=== PATIENT | female | born 1940 | race African-American/Black ===

== ENCOUNTER 2019-11-13 08:30 | Inpatient (IN) | payer MEDICARE ==
[~2019-11-13] VITALS: Ht 157.5 cm; Wt 88.9 kg
[~2019-11-13 08:30] MED LIST: ATOR20TA65 MT; CHLO25TA2 PO; FLEC100T2 MT; FURO20TA4 PO; GABA300S PO; HYDR100T26 MT; LEVO25TA7 MT; LISI40TA4 MT; METF-414 PO; METO-539 MT; MONT10TA26 MT; PANT40TA4 PO; PRIM50TA31 MT; RIVA20TA MT; SERT-112 MT
[2019-11-13 09:35] LABS: BASOPHILS % 1.1 % (0.0-2.0); EOSINOPHILS % 2.5 % (0.0-5.0); HEMATOCRIT. 34.9 % (36.0-48.0); HEMOGLOBIN. 11.7 g/dL (12.0-16.0); LYMPHOCYTES % 18.5 % (20.0-50.0); MEAN CORPUSCULAR HEMOGLOBIN 30.4 pg (28.0-32.0); MEAN CORPUSCULAR VOLUME 90.3 fL (81.0-99.0); MEAN PLATELET VOLUME 8.5 fl (7.4-10.4); MONOCYTES % 7.5 % (2.0-8.0); NEUTROPHILS % 70.4 % (40.0-76.0); PLATELET 302 x1000/uL (130-400); RED BLOOD CELL COUNT 3.86 mill/uL (4.2-5.4); RED CELL DISTRIBUTION WIDTH 17.2 % (11.6-14.6)
[2019-11-13 09:39] LABS: CHLORIDE 104 mEq/L (98-107)
[2019-11-13] MEDS ORDERED: ACETAMINOPHEN 325MG TABLET PO STA (11:41)
[2019-11-13] MEDS ORDERED: MAGNESIUM/ALUMINUM HYDROXIDE/SIMETHICONE 30ML UDC PO PRN (16:45)
[2019-11-13] MEDS ORDERED: GUAIFENESIN 200MG/10ML SUGAR FREE UDC PO PRN (16:45)
[2019-11-13] MEDS ORDERED: ACETAMINOPHEN 650MG SUPP PR PRN (16:45)
[2019-11-13] MEDS ORDERED: ONDANSETRON HCL 4MG/2ML INJ IV PRN (16:45)
[2019-11-13] MEDS ORDERED: DOCUSATE SODIUM 100MG CAPSULE PO PRN (16:45)
[2019-11-13] MEDS ORDERED: HYDROCODONE/ACETAMINOPHEN 5/325MG TABLET PO PRN (16:45)
[2019-11-13 17:44] LABS: BG BASE EXCESS -0.2 mmol/L (-2.0-2.0); BG CARBOXYHEMOGLOBIN 0.3 % (0.5-1.5); BG DEOXYHEMOGLOBIN 6.1 % (0.0-5.0); BG FRACTION INSPIRED OXYGEN 21; BG HCO3 ACT 23.4 mmol/L (22.0-26.0); BG METHEMOGLOBIN 0.6 % (0.0-1.5); BG OXYGEN SATURATION 93.8 % (92.0-98.5); BG PCO2 34.8 mmHg (35.0-45.0); BG PH 7.445 (7.350-7.450); BG PO2 68.7 mmHg (75.0-100.0); BG SAMPLE SITE RIGHT RADIAL; BG TOTAL HEMOGLOBIN 12.3 g/dL (12.0-18.0); BG VENT MODE ROOM AIR
[2019-11-13] MEDS ORDERED: FUROSEMIDE 20MG TABLET PO SCH (18:00)
[2019-11-13] MEDS ORDERED: GABAPENTIN SOLN 50MG/1ML UDC PO NR (18:01)
[2019-11-13] MEDS ORDERED: PANTOPRAZOLE 40MG DR TABLET PO NR (18:01)
[2019-11-13] MEDS ORDERED: PRIMIDONE 50MG TABLET PO NR (18:02)
[2019-11-13] MEDS ORDERED: ENOXAPARIN 60MG/0.6ML SYR SUBCUT SCH (18:15)
[2019-11-13] MEDS ORDERED: GABAPENTIN 300MG CAPSULE PO NR (18:15)
[2019-11-13 19:20] LABS: INR 1.1; PROTHROMBIN TIME 12.2 sec (9.6-11.0)
[2019-11-13 19:57] LABS: CREATINE KINASE MB FRACTION 3.7 ng/mL (0.5-3.6)
[2019-11-13 21:45] VITALS: BP 142/78
[2019-11-13] MEDS: ASPIRIN 81MG TABLET PO SCH (22:38)
[2019-11-13] MEDS: ATORVASTATIN CALCIUM 20MG TABLET PO SCH (22:38)
[2019-11-13] MEDS: HYDRALAZINE HCL 100MG TABLET PO SCH (22:39)
[2019-11-13] MEDS ORDERED: DEXTROSE 50% WATER 50ML SYRINGE IV PRN (22:45)
[2019-11-14] VITALS: BP 123/71
[2019-11-14 04:00] VITALS: BP_SYST 105; BP_DIAS 25; BP_DIAS 52
[2019-11-14] MEDS: HYDRALAZINE HCL 100MG TABLET PO SCH ×3 (06:00→21:10)
[2019-11-14 06:41] LABS: CHLORIDE 107 mEq/L (98-107); EOSINOPHILS % 2.4 % (0.0-5.0); HEMATOCRIT. 38.1 % (36.0-48.0); HEMOGLOBIN. 12.8 g/dL (12.0-16.0); LYMPHOCYTES % 25.4 % (20.0-50.0); MEAN CORPUSCULAR HEMOGLOBIN 30.6 pg (28.0-32.0); MEAN CORPUSCULAR VOLUME 90.9 fL (81.0-99.0); MEAN PLATELET VOLUME 9.4 fl (7.4-10.4); MONOCYTES % 9.3 % (2.0-8.0); NEUTROPHILS % 61.9 % (40.0-76.0); PLATELET 236 x1000/uL (130-400); RED BLOOD CELL COUNT 4.19 mill/uL (4.2-5.4); RED CELL DISTRIBUTION WIDTH 17.3 % (11.6-14.6)
[2019-11-14 07:00] LABS: LDL CHOLESTEROL 53 mg/dL (5-100)
[2019-11-14 07:01] LABS: HDL CHOLESTEROL 46 mg/dL (40-59)
[2019-11-14 07:02] LABS: TOTAL IRON BINDING CAPACITY 206 ug/dL (250-450)
[2019-11-14 07:05] LABS: VITAMIN B12 SERUM 452 pg/mL (211-911)
[2019-11-14] MEDS: FUROSEMIDE 20MG TABLET PO SCH ×2 (07:05→17:58)
[2019-11-14 07:39] LABS: CLARITY URINE CLEAR (CLEAR); COLOR URINE YELLOW (YELLOW); KETONES URINE NEGATIVE (NEGATIVE); LEUKOCYTE ESTERASE URINE NEGATIVE (NEGATIVE); NITRITE URINE NEGATIVE (NEGATIVE); OCCULT BLOOD URINE NEGATIVE (NEGATIVE); PROTEIN URINE NEGATIVE (NEGATIVE); UROBILINOGEN URINE 0.2 E.U./dL (0.2-1.0)
[2019-11-14] MEDS: INSULIN LISPRO 100 UNITS/ML SUBCUT SCH ×4 (07:40→21:00)
[2019-11-14] MEDS: BLOOD SUGAR DIAGNOSTIC STRIP TEST SCH ×4 (07:40→21:08)
[2019-11-14 08:00] VITALS: BP 131/93
[2019-11-14] MEDS: PANTOPRAZOLE 40MG DR TABLET PO SCH ×2 (08:08→18:01)
[2019-11-14] MEDS: LEVOTHYROXINE SODIUM 25MCG TABLET PO SCH (08:08)
[2019-11-14] MEDS ORDERED: RIVAROXABAN 20 MG TABLET PO SCH (09:00)
[2019-11-14] MEDS: GABAPENTIN 300MG CAPSULE PO SCH ×2 (09:29→17:58)
[2019-11-14] MEDS: PRIMIDONE 50MG TABLET PO SCH ×2 (09:30→17:58)
[2019-11-14] MEDS: ASPIRIN 81MG TABLET PO SCH ×2 (09:30→18:01)
[2019-11-14] MEDS: SERTRALINE HCL 100MG TABLET PO SCH (09:30)
[2019-11-14] MEDS: LISINOPRIL 40MG TABLET PO SCH (09:31)
[2019-11-14] MEDS: METOPROLOL TARTRATE 50MG TABLET PO SCH ×2 (09:31→21:10)
[2019-11-14 12:00] VITALS: BP 130/87
[2019-11-14] MEDS ORDERED: PNEUMOCOCCAL 23-VAL P-SAC VAC 0.5 ML IM ONE (12:00)
[2019-11-14] MEDS ORDERED: POTASSIUM CHLORIDE INJ 40 MEQ in DEXT 5% WATER 250 ML IV NR (13:00)
[2019-11-14 16:00] VITALS: BP 122/77
[2019-11-14] MEDS ORDERED: POTASSIUM CHLORIDE 20MEQ TABLET SR PO NR (17:45)
[2019-11-14 20:00] VITALS: BP 112/61
[2019-11-14] MEDS: ATORVASTATIN CALCIUM 20MG TABLET PO SCH (21:10)
[2019-11-15] VITALS: BP 115/65
[2019-11-15 04:00] VITALS: BP 111/62
[2019-11-15] MEDS: HYDRALAZINE HCL 100MG TABLET PO SCH ×3 (06:04→22:00)
[2019-11-15] MEDS: FUROSEMIDE 20MG TABLET PO SCH (06:50)
[2019-11-15 07:00] LABS: HEMOGLOBIN 11.6 g/dL (12.0-16.0); MEAN CORPUSCULAR HEMOGLOBIN 30.6 pg (28.0-32.0); MEAN CORPUSCULAR VOLUME 89.8 fL (81.0-99.0); PLATELET 297 x1000/uL (130-400); RED BLOOD CELL COUNT 3.79 mill/uL (4.2-5.4); RED CELL DISTRIBUTION WIDTH 17.9 % (11.6-14.6)
[2019-11-15] MEDS: INSULIN LISPRO 100 UNITS/ML SUBCUT SCH ×4 (08:10→21:00)
[2019-11-15] MEDS: BLOOD SUGAR DIAGNOSTIC STRIP TEST SCH ×4 (08:14→21:00)
[2019-11-15] MEDS: GABAPENTIN 300MG CAPSULE PO SCH ×2 (08:55→18:23)
[2019-11-15] MEDS: METOPROLOL TARTRATE 50MG TABLET PO SCH (08:56)
[2019-11-15] MEDS: LEVOTHYROXINE SODIUM 25MCG TABLET PO SCH (08:56)
[2019-11-15] MEDS: SERTRALINE HCL 100MG TABLET PO SCH (08:56)
[2019-11-15] MEDS: ASPIRIN 81MG TABLET PO SCH (08:57)
[2019-11-15] MEDS: LISINOPRIL 40MG TABLET PO SCH (08:57)
[2019-11-15] MEDS: PRIMIDONE 50MG TABLET PO SCH ×2 (08:57→18:23)
[2019-11-15] MEDS: PANTOPRAZOLE 40MG DR TABLET PO SCH (09:03)
[2019-11-15] MEDS ORDERED: ASPIRIN 81MG TABLET PO SCH (10:45)
[2019-11-15] MEDS ORDERED: FENTANYL CITRATE/PF 50MCG/ML 2ML VIAL ONE (11:56)
[2019-11-15] MEDS ORDERED: MIDAZOLAM HCL 2 MG/2 ML VIAL ONE (11:56)
[2019-11-15] MEDS ORDERED: IODIXANOL 320MG/ML 100 ML BOTTLE IV ONE (11:56)
[2019-11-15] MEDS ORDERED: HEPARIN 1,000 UNITS PREMIX 0 ML IV ONE (11:57)
[2019-11-15] MEDS ORDERED: LIDOCAINE HCL 1% 20ML VIAL (Pyxis) INJ ONE (11:57)
[2019-11-15] MEDS ORDERED: ASPIRIN/SOD BICARB/CITRIC ACID 324MG TAB EFF ONE (11:57)
[2019-11-15 12:00] VITALS: BP 89/59
[2019-11-15] MEDS ORDERED: MIDODRINE HCL 5MG TABLET PO NR (14:15)
[2019-11-15 16:00] VITALS: BP 101/67
[2019-11-15] MEDS: MIDODRINE HCL 5MG TABLET PO SCH (17:00)
[2019-11-15] MEDS: FAMOTIDINE 20MG TABLET PO SCH (18:23)
[2019-11-15 20:00] VITALS: BP 128/65
[2019-11-16] VITALS: BP 104/63
[2019-11-16] MEDS: ATORVASTATIN CALCIUM 20MG TABLET PO SCH ×2 (02:07→21:25)
[2019-11-16] MEDS: METOPROLOL TARTRATE 25MG TABLET PO SCH ×3 (02:09→21:25)
[2019-11-16 04:00] VITALS: BP 140/83
[2019-11-16] MEDS: LEVOTHYROXINE SODIUM 25MCG TABLET PO SCH (06:24)
[2019-11-16] MEDS: HYDRALAZINE HCL 100MG TABLET PO SCH ×3 (06:25→21:25)
[2019-11-16] MEDS: BLOOD SUGAR DIAGNOSTIC STRIP TEST SCH ×4 (06:25→21:15)
[2019-11-16 06:53] LABS: BASOPHILS % 1.1 % (0.0-2.0); EOSINOPHILS % 4.1 % (0.0-5.0); HEMATOCRIT. 36.6 % (36.0-48.0); HEMOGLOBIN. 12.5 g/dL (12.0-16.0); LYMPHOCYTES % 20.4 % (20.0-50.0); MEAN CORPUSCULAR HEMOGLOBIN 30.9 pg (28.0-32.0); MEAN CORPUSCULAR VOLUME 90.5 fL (81.0-99.0); MEAN PLATELET VOLUME 9.6 fl (7.4-10.4); MONOCYTES % 5.8 % (2.0-8.0); NEUTROPHILS % 68.6 % (40.0-76.0); PLATELET 258 x1000/uL (130-400); RED BLOOD CELL COUNT 4.05 mill/uL (4.2-5.4); RED CELL DISTRIBUTION WIDTH 17.9 % (11.6-14.6)
[2019-11-16] MEDS: INSULIN LISPRO 100 UNITS/ML SUBCUT SCH ×4 (07:43→21:18)
[2019-11-16] MEDS: MIDODRINE HCL 5MG TABLET PO SCH ×3 (09:00→17:00)
[2019-11-16] MEDS: SERTRALINE HCL 100MG TABLET PO SCH (09:30)
[2019-11-16] MEDS: GABAPENTIN 300MG CAPSULE PO SCH ×2 (09:30→17:34)
[2019-11-16] MEDS: PRIMIDONE 50MG TABLET PO SCH ×2 (09:31→17:34)
[2019-11-16] MEDS: ASPIRIN 81MG TABLET PO SCH ×2 (09:37→17:34)
[2019-11-16] MEDS: ACETAMINOPHEN 325MG TABLET PO PRN (11:01)
[2019-11-16 11:59] VITALS: BP 110/60
[2019-11-16] MEDS: FAMOTIDINE 20MG TABLET PO SCH (17:49)
[2019-11-16] MEDS: DIPHENHYDRAMINE 50MG/ML VIAL IV PRN (17:54)
[2019-11-16 20:00] VITALS: BP 108/53
[2019-11-17] VITALS: BP 128/67
[2019-11-17 04:00] VITALS: BP 145/76
[2019-11-17] MEDS: HYDRALAZINE HCL 100MG TABLET PO SCH ×3 (05:42→21:22)
[2019-11-17] MEDS: BLOOD SUGAR DIAGNOSTIC STRIP TEST SCH ×4 (06:14→21:00)
[2019-11-17 08:00] VITALS: BP 117/68
[2019-11-17] MEDS: INSULIN LISPRO 100 UNITS/ML SUBCUT SCH ×4 (08:10→21:00)
[2019-11-17] MEDS: MIDODRINE HCL 5MG TABLET PO SCH ×3 (08:45→17:44)
[2019-11-17] MEDS: LEVOTHYROXINE SODIUM 25MCG TABLET PO SCH (08:45)
[2019-11-17] MEDS: METOPROLOL TARTRATE 25MG TABLET PO SCH ×2 (08:45→21:22)
[2019-11-17] MEDS: PRIMIDONE 50MG TABLET PO SCH ×2 (08:45→17:44)
[2019-11-17] MEDS: ASPIRIN 81MG TABLET PO SCH ×2 (08:45→17:44)
[2019-11-17] MEDS: SERTRALINE HCL 100MG TABLET PO SCH (08:45)
[2019-11-17] MEDS: GABAPENTIN 300MG CAPSULE PO SCH ×2 (09:39→17:44)
[2019-11-17 12:00] VITALS: BP 109/65
[2019-11-17 15:08] LABS: CHLORIDE 105 mEq/L (98-107)
[2019-11-17 16:00] VITALS: BP 105/72
[2019-11-17] MEDS: FAMOTIDINE 20MG TABLET PO SCH (17:44)
[2019-11-17 20:00] VITALS: BP 125/86
[2019-11-17] MEDS: ATORVASTATIN CALCIUM 20MG TABLET PO SCH (21:22)
[2019-11-18] VITALS (7 sets, daily range): BP systolic 90–138; BP diastolic 52–82
[2019-11-18] MEDS: HYDRALAZINE HCL 100MG TABLET PO SCH ×3 (05:52→22:00)
[2019-11-18 06:25] LABS: BASOPHILS % 1.4 % (0.0-2.0); EOSINOPHILS % 5.5 % (0.0-5.0); HEMATOCRIT. 33.2 % (36.0-48.0); HEMOGLOBIN. 11.2 g/dL (12.0-16.0); LYMPHOCYTES % 24.8 % (20.0-50.0); MEAN CORPUSCULAR HEMOGLOBIN 30.6 pg (28.0-32.0); MEAN CORPUSCULAR VOLUME 90.8 fL (81.0-99.0); MEAN PLATELET VOLUME 8.9 fl (7.4-10.4); MONOCYTES % 8.2 % (2.0-8.0); NEUTROPHILS % 60.1 % (40.0-76.0); PLATELET 250 x1000/uL (130-400); RED BLOOD CELL COUNT 3.66 mill/uL (4.2-5.4); RED CELL DISTRIBUTION WIDTH 17.8 % (11.6-14.6)
[2019-11-18] MEDS: INSULIN LISPRO 100 UNITS/ML SUBCUT SCH ×4 (06:48→20:46)
[2019-11-18] MEDS: BLOOD SUGAR DIAGNOSTIC STRIP TEST SCH ×3 (06:48→20:46)
[2019-11-18 07:04] LABS: CHLORIDE 104 mEq/L (98-107)
[2019-11-18] MEDS: LEVOTHYROXINE SODIUM 25MCG TABLET PO SCH (07:40)
[2019-11-18] MEDS: METOPROLOL TARTRATE 25MG TABLET PO SCH ×2 (09:00→18:55)
[2019-11-18] MEDS: MIDODRINE HCL 5MG TABLET PO SCH ×2 (09:00→17:00)
[2019-11-18] MEDS: PRIMIDONE 50MG TABLET PO SCH ×2 (09:00→18:55)
[2019-11-18] MEDS: GABAPENTIN 300MG CAPSULE PO SCH ×2 (09:00→18:54)
[2019-11-18] MEDS: SERTRALINE HCL 100MG TABLET PO SCH (09:00)
[2019-11-18] MEDS: ASPIRIN 81MG TABLET PO SCH ×2 (09:00→18:54)
[2019-11-18] MEDS ORDERED: LIDOCAINE HCL 1% 20ML VIAL (Pyxis) INJ ONE (11:00)
[2019-11-18] MEDS ORDERED: IOHEXOL-300 100 ML BOTTLE ONE (11:00)
[2019-11-18] MEDS ORDERED: IODIXANOL 320MG/ML 100 ML BOTTLE IV ONE ×2 (11:00→11:53)
[2019-11-18] MEDS ORDERED: ASPIRIN/SOD BICARB/CITRIC ACID 324MG TAB EFF ONE (11:08)
[2019-11-18] MEDS ORDERED: FENTANYL CITRATE/PF 50MCG/ML 2ML VIAL ONE (11:15)
[2019-11-18] MEDS ORDERED: MIDAZOLAM HCL 2 MG/2 ML VIAL ONE (11:15)
[2019-11-18] MEDS ORDERED: HEPARIN SODIUM 1,000 UNIT/1ML VIAL IV ONE (11:55)
[2019-11-18] MEDS ORDERED: NITROGLYCERIN 50MCG/ML 10ML VIAL (CATH LAB) IV ONE (11:55)
[2019-11-18] MEDS ORDERED: HYDRALAZINE 20MG/ML VIAL ONE (12:05)
[2019-11-18] MEDS ORDERED: ATROPINE SULFATE 1MG/10ML SYR IV PRN (12:15)
[2019-11-18] MEDS ORDERED: ACETAMINOPHEN 325MG TABLET PO PRN (12:15)
[2019-11-18] MEDS ORDERED: LABETALOL HCL 5MG/ML VIAL 20ML IV ONE (12:22)
[2019-11-18] MEDS: DIPHENHYDRAMINE 50MG/ML VIAL IV PRN (14:47)
[2019-11-18] MEDS: FAMOTIDINE 20MG TABLET PO SCH (18:54)
[2019-11-18] MEDS: ACETAMINOPHEN 325MG TABLET PO PRN (18:58)
[2019-11-18] MEDS: ATORVASTATIN CALCIUM 20MG TABLET PO SCH (20:41)
[2019-11-18] MEDS: SODIUM CHLORIDE 0.45% 1,000 ML IV SCH (21:00)
[2019-11-19] VITALS (15 sets, daily range): BP systolic 103–182; BP diastolic 53–113
[2019-11-19] MEDS: SODIUM CHLORIDE 0.45% 1,000 ML IV SCH ×2 (00:29→11:42)
[2019-11-19] MEDS: BLOOD SUGAR DIAGNOSTIC STRIP TEST SCH ×4 (05:55→21:16)
[2019-11-19] MEDS: LEVOTHYROXINE SODIUM 25MCG TABLET PO SCH (06:15)
[2019-11-19] MEDS: HYDRALAZINE HCL 100MG TABLET PO SCH ×2 (06:16→14:00)
[2019-11-19 06:46] LABS: BASOPHILS % 1.1 % (0.0-2.0); EOSINOPHILS % 4.7 % (0.0-5.0); HEMATOCRIT. 31.2 % (36.0-48.0); HEMOGLOBIN. 10.4 g/dL (12.0-16.0); LYMPHOCYTES % 25.4 % (20.0-50.0); MEAN CORPUSCULAR HEMOGLOBIN 30.3 pg (28.0-32.0); MEAN CORPUSCULAR VOLUME 90.9 fL (81.0-99.0); MONOCYTES % 9.6 % (2.0-8.0); NEUTROPHILS % 59.2 % (40.0-76.0); PLATELET 234 x1000/uL (130-400); RED BLOOD CELL COUNT 3.43 mill/uL (4.2-5.4); RED CELL DISTRIBUTION WIDTH 17.4 % (11.6-14.6)
[2019-11-19] MEDS: INSULIN LISPRO 100 UNITS/ML SUBCUT SCH ×4 (07:20→21:00)
[2019-11-19 07:32] LABS: CHLORIDE 106 mEq/L (98-107)
[2019-11-19] MEDS: ASPIRIN 81MG TABLET PO SCH (08:46)
[2019-11-19] MEDS: METOPROLOL TARTRATE 25MG TABLET PO SCH ×2 (08:46→20:37)
[2019-11-19] MEDS: PRIMIDONE 50MG TABLET PO SCH (08:46)
[2019-11-19] MEDS: GABAPENTIN 300MG CAPSULE PO SCH ×2 (09:00→17:00)
[2019-11-19] MEDS: MIDODRINE HCL 5MG TABLET PO SCH ×2 (09:00→13:00)
[2019-11-19] MEDS: SERTRALINE HCL 100MG TABLET PO SCH (09:00)
[2019-11-19] MEDS: ACETAMINOPHEN 325MG TABLET PO PRN (09:49)
[2019-11-19] MEDS ORDERED: IOHEXOL-300 100 ML BOTTLE ONE (12:40)
[2019-11-19] MEDS ORDERED: IODIXANOL 320MG/ML 100 ML BOTTLE IV ONE (12:40)
[2019-11-19] MEDS ORDERED: ASPIRIN/SOD BICARB/CITRIC ACID 324MG TAB EFF ONE (12:41)
[2019-11-19] MEDS ORDERED: LIDOCAINE HCL 1% 20ML VIAL (Pyxis) INJ ONE ×2 (12:41→14:34)
[2019-11-19] MEDS ORDERED: HEPARIN SODIUM 1,000 UNIT/1ML VIAL IV ONE ×2 (13:27→15:56)
[2019-11-19] MEDS ORDERED: MIDAZOLAM HCL 2 MG/2 ML VIAL ONE (13:28)
[2019-11-19] MEDS ORDERED: FENTANYL CITRATE/PF 50MCG/ML 2ML VIAL ONE (13:28)
[2019-11-19] MEDS ORDERED: CLOPIDOGREL 75MG TABLET ONE (14:35)
[2019-11-19] MEDS ORDERED: ATROPINE SULFATE 0.1MG/ML 10ML DISP.SYRIN ONE (14:42)
[2019-11-19] MEDS ORDERED: ACETAMINOPHEN 325MG TABLET PO PRN (14:45)
[2019-11-19] MEDS ORDERED: CLOPIDOGREL 75MG TABLET PO NR (14:45)
[2019-11-19] MEDS ORDERED: MORPHINE SULFATE 2 MG/ML CPJ (NOT FOR IM USE) IV PRN (14:45)
[2019-11-19] MEDS ORDERED: ATROPINE SULFATE 1MG/10ML SYR IV PRN (14:45)
[2019-11-19] MEDS ORDERED: DIPHENHYDRAMINE 50MG/ML VIAL ONE (14:48)
[2019-11-19] MEDS ORDERED: SODIUM CHLORIDE 0.45% 1,000 ML IV NR ×2 (15:00→15:45)
[2019-11-19] MEDS ORDERED: PHENYLEPHRINE 100MCG/ML 10ML VIAL (CATH LAB) IV ONE (15:56)
[2019-11-19] MEDS ORDERED: NICARDIPINE 100MCG/ML 10ML VIAL (CATH LAB) IV ONE (15:56)
[2019-11-19] MEDS ORDERED: NITROGLYCERIN 50MCG/ML 10ML VIAL (CATH LAB) IV ONE (15:56)
[2019-11-19] MEDS: FAMOTIDINE 20MG TABLET PO SCH (17:12)
[2019-11-19] MEDS: ONDANSETRON HCL 4MG/2ML INJ IV PRN ×2 (17:54→21:49)
[2019-11-19] MEDS ORDERED: METOPROLOL TARTRATE 25MG TABLET PO NR (18:00)
[2019-11-19] MEDS ORDERED: AMIODARONE HCL 200 MG TABLET PO NR (18:00)
[2019-11-19] MEDS: METOPROLOL TARTRATE 5MG/5ML VIAL IV NR ×2 (18:50→20:59)
[2019-11-19] MEDS ORDERED: METOPROLOL TARTRATE 5MG/5ML VIAL IV PRN (20:00)
[2019-11-19] MEDS: AMIODARONE HCL 200 MG TABLET PO SCH (20:37)
[2019-11-19] MEDS: ATORVASTATIN CALCIUM 20MG TABLET PO SCH (20:37)
[2019-11-19] MEDS ORDERED: DILTIAZEM HCL 125 MG in DEXT 5% WATER 100 ML IV SCH (22:00)
[2019-11-20] VITALS (9 sets, daily range): BP systolic 102–165; BP diastolic 48–105
[2019-11-20] MEDS: HYDRALAZINE HCL 100MG TABLET PO SCH ×4 (01:46→19:52)
[2019-11-20] MEDS: ONDANSETRON HCL 4MG/2ML INJ IV PRN (03:15)
[2019-11-20] MEDS: LEVOTHYROXINE SODIUM 25MCG TABLET PO SCH (05:57)
[2019-11-20] MEDS: SODIUM CHLORIDE 0.45% 1,000 ML IV SCH (05:59)
[2019-11-20] MEDS: BLOOD SUGAR DIAGNOSTIC STRIP TEST SCH ×4 (06:13→20:02)
[2019-11-20 06:53] LABS: CHLORIDE 107 mEq/L (98-107)
[2019-11-20 07:01] LABS: BASOPHILS % 0.4 % (0.0-2.0); EOSINOPHILS % 1.5 % (0.0-5.0); HEMATOCRIT. 34.5 % (36.0-48.0); HEMOGLOBIN. 11.5 g/dL (12.0-16.0); LYMPHOCYTES % 9.7 % (20.0-50.0); MEAN CORPUSCULAR HEMOGLOBIN 30.1 pg (28.0-32.0); MEAN CORPUSCULAR VOLUME 90.5 fL (81.0-99.0); MONOCYTES % 4.2 % (2.0-8.0); NEUTROPHILS % 84.2 % (40.0-76.0); PLATELET 265 x1000/uL (130-400); RED BLOOD CELL COUNT 3.81 mill/uL (4.2-5.4); RED CELL DISTRIBUTION WIDTH 17.3 % (11.6-14.6)
[2019-11-20] MEDS: INSULIN LISPRO 100 UNITS/ML SUBCUT SCH ×4 (07:20→20:03)
[2019-11-20] MEDS: GABAPENTIN 300MG CAPSULE PO SCH ×2 (08:34→16:25)
[2019-11-20] MEDS: CLOPIDOGREL 75MG TABLET PO SCH (08:34)
[2019-11-20] MEDS: AMIODARONE HCL 200 MG TABLET PO SCH ×3 (08:34→19:53)
[2019-11-20] MEDS: SERTRALINE HCL 100MG TABLET PO SCH (08:35)
[2019-11-20] MEDS: METOPROLOL TARTRATE 25MG TABLET PO SCH ×2 (08:35→19:52)
[2019-11-20] MEDS ORDERED: ASPIRIN 325MG TABLET PO SCH (09:00)
[2019-11-20] MEDS ORDERED: ASPIRIN 81MG TABLET PO SCH (09:00)
[2019-11-20] MEDS ORDERED: METOPROLOL TARTRATE 5MG/5ML VIAL IV PRN (10:00)
[2019-11-20] MEDS ORDERED: METOPROLOL TARTRATE 5MG/5ML VIAL IV NR (10:00)
[2019-11-20] MEDS: APIXABAN 5 MG TABLET PO SCH ×2 (11:43→16:26)
[2019-11-20] MEDS ORDERED: POTASSIUM CHLORIDE 20MEQ/PACKET PO NR (14:00)
[2019-11-20] MEDS: FAMOTIDINE 20MG TABLET PO SCH (16:26)
[2019-11-20] MEDS: POTASSIUM CHLORIDE 20MEQ/PACKET PO SCH (19:50)
[2019-11-20] MEDS: ATORVASTATIN CALCIUM 20MG TABLET PO SCH (19:50)
[2019-11-20] MEDS: DIPHENHYDRAMINE 50MG/ML VIAL IV PRN (19:51)
[2019-11-21 04:00] VITALS: BP 148/68
[2019-11-21] MEDS: AMIODARONE HCL 200 MG TABLET PO SCH ×2 (04:42→14:02)
[2019-11-21] MEDS: LEVOTHYROXINE SODIUM 25MCG TABLET PO SCH (04:42)
[2019-11-21] MEDS: HYDRALAZINE HCL 100MG TABLET PO SCH ×2 (04:43→14:00)
[2019-11-21] MEDS: BLOOD SUGAR DIAGNOSTIC STRIP TEST SCH ×2 (05:54→11:30)
[2019-11-21] MEDS: INSULIN LISPRO 100 UNITS/ML SUBCUT SCH ×2 (05:54→11:30)
[2019-11-21 06:57] LABS: BASOPHILS % 0.8 % (0.0-2.0); EOSINOPHILS % 7.6 % (0.0-5.0); HEMOGLOBIN. 11.1 g/dL (12.0-16.0); LYMPHOCYTES % 16.2 % (20.0-50.0); MEAN CORPUSCULAR HEMOGLOBIN 30.9 pg (28.0-32.0); MEAN CORPUSCULAR VOLUME 94.8 fL (81.0-99.0); MEAN PLATELET VOLUME 9.1 fl (7.4-10.4); MONOCYTES % 7.3 % (2.0-8.0); NEUTROPHILS % 68.1 % (40.0-76.0); PLATELET 197 x1000/uL (130-400); RED BLOOD CELL COUNT 3.59 mill/uL (4.2-5.4)
[2019-11-21 07:10] LABS: CHLORIDE 111 mEq/L (98-107)
[2019-11-21 08:00] VITALS: BP 166/80
[2019-11-21] MEDS: GABAPENTIN 300MG CAPSULE PO SCH (08:31)
[2019-11-21] MEDS: SERTRALINE HCL 100MG TABLET PO SCH (08:31)
[2019-11-21] MEDS: CLOPIDOGREL 75MG TABLET PO SCH (08:31)
[2019-11-21] MEDS: APIXABAN 5 MG TABLET PO SCH (08:31)
[2019-11-21] MEDS: METOPROLOL TARTRATE 25MG TABLET PO SCH (08:32)
[2019-11-21] MEDS: POTASSIUM CHLORIDE 20MEQ/PACKET PO SCH (08:32)
[2019-11-21] MEDS ORDERED: ASPIRIN 81MG TABLET PO SCH (09:00)
[2019-11-21 12:00] VITALS: BP 132/58
[2019-11-21] MEDS ORDERED: METF-414 MT (12:57)
[2019-11-21] MEDS ORDERED: ATOR20TA MT (12:57)
[2019-11-21] MEDS ORDERED: AMIO100T4 PO (12:57)
[2019-11-21] MEDS ORDERED: APIX5TAB MT (12:57)
[2019-11-21] MEDS ORDERED: CLOP75TA4 MT (12:57)
[2019-11-21] MEDS ORDERED: PANT40SU PO (12:57)
[2019-11-21] MEDS ORDERED: METO25TA6 MT (12:57)
[2019-11-21] MEDS ORDERED: ASPI-1497 MT (12:57)
[2019-11-21] MEDS ORDERED: SERT100T MT (12:57)
[2019-11-21] MEDS ORDERED: LEVO25TA2 MT (12:57)
[2019-11-21 14:00] VITALS: BP 105/60
[2019-11-21 14:11] VITALS: BP 105/60
== END 2019-11-21 16:26 | disposition home health service (06) | DRG 246 ==
LOC: ER 08:30 → 7WST 12:08 → ENRESERV 20:55 → 7WST 11-18 16:54 → 3WST 11-18 16:58
PROVIDERS: ADMIT Internal Medicine; ATTEND Internal Medicine
PROC: B2181ZZ Fluoroscopy of Left Internal Mammary Bypass Graft using Low Osmolar Contrast (ICD-10-PCS; principal; 2019-11-18)
PROC: 4A023N7 Measurement of Cardiac Sampling and Pressure, Left Heart, Percutaneous Approach (ICD-10-PCS; 2019-11-18)
PROC: 4A12XSH Monitoring of Cardiac Vascular Perfusion using Indocyanine Green Dye, External Approach (ICD-10-PCS; 2019-11-18)
PROC: B2181ZZ Fluoroscopy of Left Internal Mammary Bypass Graft using Low Osmolar Contrast (ICD-10-PCS; 2019-11-18)
PROC: B2131ZZ Fluoroscopy of Multiple Coronary Artery Bypass Grafts using Low Osmolar Contrast (ICD-10-PCS; 2019-11-18)
PROC: B2111ZZ Fluoroscopy of Multiple Coronary Arteries using Low Osmolar Contrast (ICD-10-PCS; 2019-11-18)
PROC: 027034Z Dilation of Coronary Artery, One Artery with Drug-eluting Intraluminal Device, Percutaneous Approach (ICD-10-PCS; 2019-11-19)
DX: I21.4 Non-ST elevation (NSTEMI) myocardial infarction (principal); J96.01 Acute respiratory failure with hypoxia; I47.2 Ventricular tachycardia; E03.9 Hypothyroidism, unspecified; E11.9 Type 2 diabetes mellitus without complications; E87.6 Hypokalemia; G25.0 Essential tremor; I10 Essential (primary) hypertension; I25.10 Atherosclerotic heart disease of native coronary artery without angina pectoris; I25.2 Old myocardial infarction; I48.0 Paroxysmal atrial fibrillation; Z79.01 Long term (current) use of anticoagulants; Z86.718 Personal history of other venous thrombosis and embolism; Z95.1 Presence of aortocoronary bypass graft; Z86.74 Personal history of sudden cardiac arrest; Z87.01 Personal history of pneumonia (recurrent); I95.9 Hypotension, unspecified; K30 Functional dyspepsia; D64.9 Anemia, unspecified; Z88.6 Allergy status to analgesic agent; Z91.040 Latex allergy status; Z79.899 Other long term (current) drug therapy; Z79.84 Long term (current) use of oral hypoglycemic drugs
CPT/HCPCS: 36415; 36600; 71045; 80048; 80053; 80061; 81003; 82375; 82550; 82553; 82607; 82805; 82962; 83540; 83550; 83880; 84443; 84484; 85025; 85027; 85347; 90732; 92610; 92928; 93005; 93306; 93454; 93459; 93970; 97162; 97164; 99285; C1760; C1769; C1874; C1887; C1893; J0360; J0461; J1200; J1644; J1815; J2250; J2370; J2405; J3010; J3480; J3490; J7060; Q9967